=== PATIENT | male | born 1975 | race Caucasian/White ===

== ENCOUNTER 2017-04-24 16:03 | Emergency (ER) | payer MEDICAID, OTHER ==
[~2017-04-24] VITALS: Ht 177.8 cm; Wt 106.0 kg
[2017-04-24 16:07] VITALS: BP 130/88; RESP 16; TEMP 98; O2SAT 97
[2017-04-24] MEDS ORDERED: SODIUM CHLOR 0.9% 1000 ML INJ 1,000 ML IV ONE ×2 (16:17→16:47)
--- NOTE | 2017-04-24 16:21 | PD ---
HPI Chief Complaint: Flank/Kidney Pain Time Seen by Provider: 16:12 Travel History International Travel<30 days: No Contact w/Intl Traveler<30days: No Traveled to known affect area: No History of Present Illness HPI 42-year-old male with history of insulin-dependent diabetes, out of his long- acting insulin, here for evaluation of chest pain and bilateral flank pain. Patient reports history of kidney stones. He is having sharp bilateral flank pain and dysuria. Chest pain is left-sided, described as pressure and sharp, worse with coughing. Cough is nonproductive. No known history of cardiac disease. There is family history of cardiac disease in his mother who from heart disease. He denies smoking. No history of DVT or PE. He moved down here from [place] a few days ago. [facility] Social History Tobacco Use: No Allergies-Medications (Allergen,Severity, Reaction): Coded Allergies: No Known Allergies (Unverified , 04/24/17) Reported Meds & Prescriptions Reported Meds & Active Scripts Active Basaglar Kwikpen (Insulin Glargine) 100 Unit/Ml Pen 20 Units SQ DAILY Reported Novolin R Inj (Insulin Human Regular) 1,000 Unit/10 Ml Vial 0 SQ DIRECTED Sliding Scale As Directed. Lexapro (Escitalopram Oxalate) 10 Mg Tab 10 Mg PO DAILY Lisinopril 20 Mg Tab 20 Mg PO DAILY Review of Systems Except as stated in HPI: all other systems reviewed are Neg Physical Exam Narrative GENERAL: Well-developed, well-nourished, comfortable, no acute distress. SKIN: Focused skin assessment warm/dry. HEAD: Atraumatic. Normocephalic. EYES: Pupils equal and round. No scleral icterus. No injection or drainage. ENT: No nasal bleeding or discharge. Mucous membranes pink and dry. NECK: Trachea midline. No JVD. CARDIOVASCULAR: Tachycardic, regular. RESPIRATORY: No accessory muscle use. Clear to auscultation. Breath sounds equal bilaterally. GASTROINTESTINAL: Abdomen soft, non-tender, nondistended. MUSCULOSKELETAL: No obvious deformities. No clubbing. No cyanosis. No edema. NEUROLOGICAL: Awake and alert. No obvious cranial nerve deficits. Motor grossly within normal limits. Normal speech. PSYCHIATRIC: Appropriate mood and affect; insight and judgment normal. Data Data Last Documented VS Vital Signs Date Time Temp Pulse Resp B/P Pulse Ox O2 Delivery O2 Flow Rate FiO2 04/24/17 19:20 90 18 98 04/24/17 19:02 139/90 Room Air 04/24/17 16:07 98.0 Orders Electrocardiogram (04/24/17 16:17) Complete Blood Count With Diff (04/24/17 16:17) Comprehensive Metabolic Panel (04/24/17 16:17) Beta Hydroxybutyrate (Acetone) (04/24/17 16:17) Lactic Acid (04/24/17 16:17) Urinalysis - C+S If Indicated (04/24/17 16:17) Chest, Single Ap (04/24/17 16:17) Ecg Monitoring (04/24/17 16:17) Iv Access Insert/Monitor (04/24/17 16:17) Oximetry (04/24/17 16:17) NPO (04/24/17 16:17) Sodium Chlor 0.9% 1000 Ml Inj (Ns 1000 M (04/24/17 16:17) Sodium Chlor 0.9% 1000 Ml Inj (Ns 1000 M (04/24/17 16:47) Sodium Chloride 0.9% Flush (Ns Flush) (04/24/17 16:30) Lipase (04/24/17 16:17) Ckmb (Isoenzyme) Profile (04/24/17 16:17) Troponin I (04/24/17 16:17) Aspirin Chew (Aspirin Chew) (04/24/17 16:30) Ct Pulmonary Angiogram (04/24/17 16:17) Ct Abd/Pel W/O Iv Contrast (04/24/17 ) Ondansetron Inj (Zofran Inj) (04/24/17 16:30) Ketorolac Inj (Toradol Inj) (04/24/17 16:30) Iohexol 350 Inj (Omnipaque 350 Inj) (04/24/17 18:44) Labs Laboratory Tests Test 04/24/17 04/24/17 04/24/17 16:20 16:40 16:45 Urine Color YELLOW Urine Turbidity CLEAR Urine pH 6.0 Urine Specific [place] 1.025 Urine Protein NEG mg/dL Urine Glucose (UA) 250 mg/dL Urine Ketones TRACE mg/dL Urine Occult Blood NEG Urine Nitrite NEG Urine Bilirubin NEG Urine Leukocyte Esterase NEG Urine WBC 0-2 /hpf Urine Squamous Epithelial 0-5 /hpf Cells Microscopic Urinalysis Comment CULT NOT INDICATED Lactic Acid Level 1.2 mmol/L White Blood Count 12.2 TH/MM3 Red Blood Count 6.18 MIL/MM3 Hemoglobin 16.2 GM/DL Hematocrit 49.5 % Mean Corpuscular Volume 80.1 FL Mean Corpuscular Hemoglobin 26.2 PG Mean Corpuscular Hemoglobin 32.7 % Concent Red Cell Distribution Width 14.0 % Platelet Count 290 TH/MM3 Mean Platelet Volume 9.2 FL Neutrophils (%) (Auto) 70.0 % Lymphocytes (%) (Auto) 20.5 % Monocytes (%) (Auto) 6.6 % Eosinophils (%) (Auto) 2.5 % Basophils (%) (Auto) 0.4 % Neutrophils # (Auto) 8.6 TH/MM3 Lymphocytes # (Auto) 2.5 TH/MM3 Monocytes # (Auto) 0.8 TH/MM3 Eosinophils # (Auto) 0.3 TH/MM3 Basophils # (Auto) 0.0 TH/MM3 CBC Comment DIFF FINAL Differential Comment Sodium Level 140 MEQ/L Potassium Level 4.1 MEQ/L Chloride Level 104 MEQ/L Carbon Dioxide Level 27.3 MEQ/L Anion Gap 9 MEQ/L Blood Urea Nitrogen 16 MG/DL Creatinine 1.00 MG/DL Estimat Glomerular Filtration 82 ML/MIN Rate Random Glucose 235 MG/DL Calcium Level 8.8 MG/DL Total Bilirubin 0.6 MG/DL Aspartate Amino Transf 21 U/L (AST/SGOT) Alanine Aminotransferase 50 U/L (ALT/SGPT) Alkaline Phosphatase 99 U/L Total Creatine Kinase 83 U/L Troponin I LESS THAN 0.02 NG/ML Total Protein 7.7 GM/DL Albumin 3.8 GM/DL Lipase 107 U/L B-Hydroxybutyrate 0.10 MMOL/L [facility] Medical Decision Making Medical Screen Exam Complete: Yes Emergency Medical Condition: Yes Interpretation(s) EKG: Sinus tachycardia, rate 114, normal axis, normal intervals, no acute ischemic abnormality. Differential Diagnosis DKA, dehydration, UTI, nephrolithiasis, ureterolithiasis, pyelonephritis, ACS, pneumothorax, pericarditis, PE, pneumonia Narrative Course Vital signs show heart rate 120, blood pressure 130/80, pulse ox 97% on room air , oral temp of 98F. CBC is essentially unremarkable. CMP is remarkable for random glucose 235, otherwise unremarkable. Lactic acid is 1.2. Lipase is 107. Cardiac enzymes are negative. Beta hydroxybutyrate is 0.10. UA shows trace ketones, 250 glucose, no hematuria, not suggestive of UTI. CT pulmonary angiogram: CONCLUSION: No pulmonary embolus or other acute cardiopulmonary disease demonstrated. Evident on these contrast-enhanced images is fatty infiltration of the liver. CT abdomen pelvis: CONCLUSION: 1. Multiple small nonobstructing stones in both kidneys. No ureteral calculus or hydronephrosis/hydroureter on either side. 2. Nonspecific splenomegaly. 3. Sigmoid colon diverticulosis without perceptible acute inflammatory changes. 4. Fat-containing bilateral inguinal hernias. Patient was made aware of all findings. He is resting comfortably. He is feeling 100% better after receiving Toradol. He admits that his pain was worse with movements as well as when he coughs and now points to his left shoulder where his pain was. I do not believe his chest pain is cardiac in nature. Patient agrees with this. At this point I believe he is stable for discharge home with outpatient follow-up with a primary care physician this week. I will give him a prescription for his long-acting insulin Basaglar. He states he has plenty of NovoLog at home. He was informed on when to return to the emergency department. He verbalizes understanding and agreement with plan. Diagnosis Primary Impression: Hyperglycemia Additional Impressions: Atypical chest pain Musculoskeletal pain Referrals: [facility] 3 days Primary Care Physician 3 days Additional Instructions: Follow-up with a primary care physician this week. Return to the emergency department for worsening symptoms or any other concerns. Scripts Insulin Glargine (Basaglar Kwikpen)100 Unit/Ml Pen20 Units SQ DAILY #10 PEN Ref 0 Prov:Mann Youngblood MD 04/24/17 Disposition: 01 DISCHARGE HOME Condition: Stable Mann Youngblood MD Apr 24, 2017 16:21
[2017-04-24 16:30] VITALS: O2SAT 98
[2017-04-24] MEDS ORDERED: KETOROLAC TROMETHAMINE 30 MG/ML (IVP) VIAL IV PUSH ONE (16:30)
[2017-04-24] MEDS ORDERED: ONDANSETRON HCL 4 MG/2 ML VIAL IV PUSH ONE (16:30)
[2017-04-24] MEDS ORDERED: SODIUM CHLORIDE 0.9% FLUSH 10 ML FLUSH IVF PRN (16:30)
[2017-04-24] MEDS ORDERED: LEXA10TA PO (16:30)
[2017-04-24] MEDS ORDERED: NOVORP2 SQ (16:30)
[2017-04-24] MEDS ORDERED: ASPIRIN 81 MG CHEW TAB PO ONE (16:30)
[2017-04-24] MEDS ORDERED: LISI-515 PO (16:30)
--- NOTE | 2017-04-24 17:03 | RADHPO ---
EXAM DATE/TIME: 04/24/2017 16:39 [facility] COMPARISON: No previous studies available for comparison. INDICATIONS : Chest and abdominal pain. MEDICAL HISTORY : None. SURGICAL HISTORY : None. ENCOUNTER: Initial ACUITY: 1 day PAIN SCORE: 7/10 LOCATION: Bilateral chest FINDINGS: Slightly low lung volumes without significant focal pleural or parenchymal opacities. Cardiomediastin al contours are within normal limits. Bony thorax is intact. CONCLUSION: 1. No acute cardiopulmonary disease. Baljinder Torres MD on April 24, 2017 at 17:00 Board Certified Radiologist. This report was verified electronically.
[2017-04-24 17:10] LABS: CHLORIDE 104 MEQ/L (98-107); POTASSIUM 4.1 MEQ/L (3.5-5.1); SODIUM (NA) 140 MEQ/L (136-145)
[2017-04-24 17:14] LABS: ANION GAP 9 MEQ/L (5-15); BICARBONATE 27.3 MEQ/L (21.0-32.0)
[2017-04-24 17:15] LABS: BLOOD, URINE NEG (NEG); GLUCOSE,URINE 250 mg/dL (NEG); KETONE, URINE TRACE mg/dL (NEG); NITRITE,URINE NEG (NEG)
[2017-04-24 17:15] LABS: AUTOMATED NEUTROPHIL # 8.6 TH/MM3 (1.8-7.7); BASOPHIL % 0.4 % (0.0-2.0); BLOOD UREA NITROGEN 16 MG/DL (7-18); EOSINOPHIL # 0.3 TH/MM3 (0-0.4); EOSINOPHIL % 2.5 % (0.0-4.0); HEMATOCRIT 49.5 % (39.0-51.0); HEMO FLAGS DIFF FINAL; LYMPH % 20.5 % (9.0-44.0); LYMPHOCYTE # 2.5 TH/MM3 (1.0-4.8); MEAN CELL VOLUME 80.1 FL (80.0-100.0); MEAN CORPUSCULAR HEMOGLOBIN 26.2 PG (27.0-34.0); MEAN CORPUSCULAR HGB CONC 32.7 % (32.0-36.0); MONO % 6.6 % (0.0-8.0); PLATELET COUNT 290 TH/MM3 (150-450); RED BLOOD COUNT 6.18 MIL/MM3 (4.50-5.90); WHITE BLOOD COUNT 12.2 TH/MM3 (4.0-11.0)
[2017-04-24 17:17] LABS: ALT (GPT) 50 U/L (12-78); AST (GOT) 21 U/L (15-37); GLOMERULAR FILTRATION RATE 82 ML/MIN (>89)
[2017-04-24 17:19] LABS: TOTAL BILIRUBIN ADULT 0.6 MG/DL (0.2-1.0)
[2017-04-24 17:20] LABS: ALKALINE PHOSPHATASE 99 U/L (45-117)
[2017-04-24 17:26] LABS: URINE COLOR YELLOW (YELLW/STRAW)
[2017-04-24 17:27] LABS: COMMENT (UR) CULT NOT INDICATED; CULTURE IF INDICATED CULT NOT INDICATED; SQUAMOUS EPITHELIAL CELL URINE 0-5 /hpf (0-5); WBC, URINE 0-2 /hpf (0-5)
[2017-04-24 17:30] VITALS: BP_SYST 172; BP_DIAS 33; BP_DIAS 83; PULSE 74; RESP 18; O2SAT 99
[2017-04-24 17:31] LABS: CREATINE KINASE 83 U/L (39-308)
[2017-04-24] MEDS ORDERED: IOHEXOL 350 MG/ML 10 ML VIAL (for RAD DIAG) IV ONE (18:44)
--- NOTE | 2017-04-24 18:47 | RADHPO ---
EXAM DATE/TIME: 04/24/2017 17:54 [facility] COMPARISON: No previous studies available for comparison. INDICATIONS : Patient complains of right flank pain. ORAL CONTRAST: No oral contrast ingested. RADIATION DOSE: 26.90 CTDIvol (mGy) MEDICAL HISTORY : Renal calculi. Diabetes mellitus type 1. SURGICAL HISTORY : hernia repair ENCOUNTER: Initial ACUITY: 1 day PAIN SCALE: 8/10 LOCATION: Right flank TECHNIQUE: Volumetric scanning of the abdomen and pelvis was performed. Using automated exposure control and ad justment of the mA and/or kV according to patient size, radiation dose was kept as low as reasonably achievable to obtain optimal diagnostic quality images. FINDINGS: LOWER LUNGS: The visualized lower lungs are clear. LIVER: Homogeneous density without lesion. There is no dilation of the biliary tree. No calcified gallston es. SPLEEN: 14.7 cm craniocaudal PANCREAS: Within normal limits. KIDNEYS: There are approximately 8 sub-4 mm scattered stones of both kidneys. No ureteral calculus. No hydrone phrosis or hydroureter. ADRENAL GLANDS: Within normal limits. VASCULAR: There is no aortic aneurysm. BOWEL/MESENTERY: There is diverticulosis of the sigmoid colon. No acute inflammatory changes are demonstrated. ABDOMINAL WALL: Within normal limits. RETROPERITONEUM: There is no lymphadenopathy. BLADDER: No wall thickening or mass. REPRODUCTIVE: Within normal limits. INGUINAL: Bilateral fat-containing inguinal hernias are present. MUSCULOSKELETAL: Within normal limits for patient age. CONCLUSION: 1. Multiple small nonobstructing stones in both kidneys. No ureteral calculus or hydronephrosis/hydro ureter on either side. 2. Nonspecific splenomegaly. 3. Sigmoid colon diverticulosis without perceptible acute inflammatory changes. 4. Fat-containing bilateral inguinal hernias. Atul Mayo MD on April 24, 2017 at 18:42 Board Certified Radiologist. This report was verified electronically.
--- NOTE | 2017-04-24 18:48 | RADHPO ---
EXAM DATE/TIME: 04/24/2017 18:08 [facility] COMPARISON: No previous studies available for comparison. INDICATIONS : Patient complains of chest pain. IV CONTRAST: 75 cc Omnipaque 350 (iohexol) IV RADIATION DOSE: 20.27 CTDIvol (mGy) MEDICAL HISTORY : Renal calculi. Diabetes mellitus type 1. SURGICAL HISTORY : None. hernia repair ENCOUNTER: Initial ACUITY: 1 day PAIN SCALE: 8/10 LOCATION: chest TECHNIQUE: Volumetric scanning of the chest was performed using a pulmonary embolism protocol MIP images were re constructed. Using automated exposure control and adjustment of the mA and/or kV according to patien t size, radiation dose was kept as low as reasonably achievable to obtain optimal diagnostic quality images. FINDINGS: PULMONARY ARTERIES: No filling defects are seen in the pulmonary arteries through the segmental level. LUNGS: There is no consolidation or pneumothorax . No concerning pulmonary nodule is visualized. PLEURAE: There is no pleural thickening or pleural effusion. MEDIASTINUM: There is good visualization of the great vessels of the middle mediastinum. No evidence of mediastin al or hilar adenopathy/mass. MUSCULOSKELETAL: Within normal limits for patient age. MISCELLANEOUS: The visualized upper abdominal organs demonstrate no acute abnormality. CONCLUSION: No pulmonary embolus or other acute cardiopulmonary disease demonstrated. Evident on these contrast-e nhanced images is fatty infiltration of the liver. Atul Mayo MD on April 24, 2017 at 18:46 Board Certified Radiologist. This report was verified electronically.
[2017-04-24 19:02] VITALS: BP 139/90; PULSE 92; RESP 18; O2SAT 98
[2017-04-24] MEDS ORDERED: INSU1INJ18 SQ (19:09)
--- NOTE | 2017-04-25 14:58 | EKG ---
Date Performed: 04/24/2017 Time Performed: 16:32:17 PTAGE: 42 years EKG: SINUS TACHYCARDIA ABNORMAL RHYTHM ECG NO PREVIOUS TRACING DOCTOR: Naeem Lindo Interpretating Date/Time 04/25/2017 14:56:15
== END 2017-04-24 19:22 | disposition home or self-care (01) ==
LOC: PHED 16:03
DX: E11.65 Type 2 diabetes mellitus with hyperglycemia (principal); R07.89 Other chest pain; M79.1 Myalgia; R00.0 Tachycardia, unspecified; Z87.442 Personal history of urinary calculi; N20.0 Calculus of kidney
CPT/HCPCS: 71010; 71275; 74176; 80053; 81001; 82010; 82550; 83605; 83690; 84484; 85025; 93005; 96361; 96374; 96375; 99285; J1885; J2405; J7030; Q9967

== ENCOUNTER 2017-08-09 13:20 | Emergency (ER) | payer SELFPAY ==
[~2017-08-09] VITALS: Ht 177.8 cm; Wt 108.0 kg
[~2017-08-09 13:20] MED LIST: INSU1INJ18 SQ; LEXA10TA PO; LISI-515 PO; NOVORP2 SQ
[2017-08-09 13:26] VITALS: BP 144/73; PULSE 101; RESP 16; TEMP 97.8; O2SAT 97
[2017-08-09] MEDS ORDERED: NOVOLOGP2 SQ (13:39)
[2017-08-09] MEDS ORDERED: INSU1INJ18 SQ ×2 (13:39→15:01)
[2017-08-09] MEDS ORDERED: SODIUM CHLOR 0.9% 1000 ML INJ 1,000 ML IV SCH (13:49)
[2017-08-09] MEDS ORDERED: SODIUM CHLORIDE 0.9% FLUSH 10 ML FLUSH IV FLUSH PRN (14:00)
[2017-08-09] MEDS ORDERED: ONDANSETRON HCL 4 MG/2 ML VIAL IVP ONE (14:00)
[2017-08-09] MEDS ORDERED: MORPHINE SULFATE 4 MG/ML INJ IV PUSH ONE (14:00)
--- NOTE | 2017-08-09 14:11 | PD ---
HPI Chief Complaint: GI Complaint Time Seen by Provider: 13:43 Travel History International Travel<30 days: No Contact w/Intl Traveler<30days: No Traveled to known affect area: No History of Present Illness HPI The patient is a 42-year-old male who presents to the emergency department for nausea, vomiting, diarrhea, and abdominal pain that started last night. The patient was awakened from his sleep with abdominal pain and subsequent nausea and vomiting. He now complains of left lower quadrant abdominal pain. He also notes diarrhea which she describes as loose, watery, without any visible blood. The patient denies any fever, chills, or sweats. The patient does state the symptoms are moderate without any alleviating or exacerbating factors. The patient does have a history of insulin-dependent diabetes and takes long-acting and short-acting insulin. The patient recently moved [place] the local area and does not have a primary physician. The patient does have a history of previous hernia repair, denies any previous history of pancreatitis, biliary colic, gallstones, or diverticulitis. He denies any associated dysuria, frequency, or urgency. PFSH Past Medical History Diabetes: Yes Patient Takes Glucophage: No Hypertension: Yes Kidney Stones: Yes Tetanus Vaccination: < 5 Years Influenza Vaccination: No Past Surgical History Abdominal Surgery: Yes (hernia) Social History Alcohol Use: No Tobacco Use: No Substance Use: No Allergies-Medications (Allergen,Severity, Reaction): Coded Allergies: No Known Allergies (Unverified , 08/09/17) Reported Meds & Prescriptions Reported Meds & Active Scripts Active Reported Novolog Inj (Insulin Aspart) 1,000 Unit/10 Ml Vial 0 SQ DIRECTED Sliding Scale as directed. Basaglar Kwikpen (Insulin Glargine) 100 Unit/Ml Pen 1 Units SQ DIRECTED Lexapro (Escitalopram Oxalate) 10 Mg Tab 10 Mg PO DAILY Lisinopril 20 Mg Tab 20 Mg PO DAILY Review of Systems Except as stated in HPI: all other systems reviewed are Neg General / Constitutional: No: Fever Cardiovascular: No: Chest Pain or Discomfort Respiratory: No: Shortness of Breath Gastrointestinal: Positive: Nausea, Vomiting, Diarrhea, Abdominal Pain Genitourinary: No: Dysuria Musculoskeletal: No: Myalgias, Arthralgias, Weakness Physical Exam Narrative GENERAL: Awake, alert, pleasant 42-year-old male who appears his stated age and is in no acute respiratory distress. SKIN: Focused skin assessment warm/dry. HEAD: Atraumatic. Normocephalic. EYES: Pupils equal and round. No scleral icterus. No injection or drainage. ENT: No nasal bleeding or discharge. Slightly dry mucous members. NECK: Trachea midline. No JVD. CARDIOVASCULAR: Regular, tachycardic with a heart rate 105. RESPIRATORY: No accessory muscle use. Clear to auscultation. Breath sounds equal bilaterally. GASTROINTESTINAL: Abdomen soft, tender palpation epigastrium and left lower quadrant. No guarding or rigidity. Negative Miranda's. Negative McBurney's. MUSCULOSKELETAL: No obvious deformities. No clubbing. No cyanosis. No edema. NEUROLOGICAL: Awake and alert. No obvious cranial nerve deficits. Motor grossly within normal limits. Normal speech. PSYCHIATRIC: Appropriate mood and affect; insight and judgment normal. Data Data Last Documented VS Vital Signs Date Time Temp Pulse Resp B/P (MAP) Pulse Ox O2 Delivery O2 Flow Rate FiO2 08/09/17 14:20 14 08/09/17 14:15 96 139/76 (97) 96 Room Air 08/09/17 13:26 97.8 Orders Orders Complete Blood Count With Diff (08/09/17 13:49) Comprehensive Metabolic Panel (08/09/17 13:49) Lipase (08/09/17 13:49) Urinalysis - C+S If Indicated (08/09/17 13:49) Ct Abd/Pel W/O Iv Contrast (08/09/17 13:49) Iv Access Insert/Monitor (08/09/17 13:49) Ecg Monitoring (08/09/17 13:49) Oximetry (08/09/17 13:49) Morphine Inj (Morphine Inj) (08/09/17 14:00) Ondansetron Inj (Zofran Inj) (08/09/17 14:00) Sodium Chlor 0.9% 1000 Ml Inj (Ns 1000 M (08/09/17 13:49) Sodium Chloride 0.9% Flush (Ns Flush) (08/09/17 14:00) Resp Blood Gas Venous (08/09/17 ) Blood Gas Venous (Vbg) (08/09/17 14:02) Sodium Chlor 0.9% 1000 Ml Inj (Ns 1000 M (08/09/17 14:45) Insulin Aspart Inj (Novolog Inj) (08/09/17 14:45) Labs Laboratory Tests Test 08/09/17 14:02 08/09/17 14:05 Blood Gas Puncture Site IV Blood Gas Patient Temperature 98.6 Venous Blood pH 7.43 Venous Blood Partial Pressure CO2 40 mmHg Venous Blood Partial Pressure O2 70 mmHg Venous Blood HCO3 26 mmol/L Venous Blood Oxygen Saturation 92 % Venous Blood Oxygen Content 20.3 Vol % Venous Blood Base Excess 1.9 mmol/L Oxygen Delivery Device ROOM AIR Blood Gas Inspired Oxygen 21 % White Blood Count 12.1 TH/MM3 Red Blood Count 5.57 MIL/MM3 Hemoglobin 15.0 GM/DL Hematocrit 44.1 % Mean Corpuscular Volume 79.2 FL Mean Corpuscular Hemoglobin 27.0 PG Mean Corpuscular Hemoglobin Concent 34.0 % Red Cell Distribution Width 13.0 % Platelet Count 241 TH/MM3 Mean Platelet Volume 8.6 FL Neutrophils (%) (Auto) 80.3 % Lymphocytes (%) (Auto) 11.4 % Monocytes (%) (Auto) 4.9 % Eosinophils (%) (Auto) 1.8 % Basophils (%) (Auto) 1.6 % Neutrophils # (Auto) 9.7 TH/MM3 Lymphocytes # (Auto) 1.4 TH/MM3 Monocytes # (Auto) 0.6 TH/MM3 Eosinophils # (Auto) 0.2 TH/MM3 Basophils # (Auto) 0.2 TH/MM3 CBC Comment DIFF FINAL Differential Comment Blood Urea Nitrogen 11 MG/DL Creatinine 0.88 MG/DL Random Glucose 352 MG/DL Total Protein 7.0 GM/DL Albumin 3.3 GM/DL Calcium Level 8.6 MG/DL Alkaline Phosphatase 119 U/L Aspartate Amino Transf (AST/SGOT) 15 U/L Alanine Aminotransferase (ALT/SGPT) 35 U/L Total Bilirubin 0.4 MG/DL Sodium Level 134 MEQ/L Potassium Level 3.9 MEQ/L Chloride Level 101 MEQ/L Carbon Dioxide Level 24.3 MEQ/L Anion Gap 9 MEQ/L Estimat Glomerular Filtration Rate 95 ML/MIN Lipase 235 U/L [facility] Medical Decision Making Medical Screen Exam Complete: Yes Emergency Medical Condition: Yes Medical Record Reviewed: Yes Interpretation(s) Laboratory Tests Test 08/09/17 14:02 08/09/17 14:05 Blood Gas Puncture Site IV Blood Gas Patient Temperature 98.6 Venous Blood pH 7.43 Venous Blood Partial Pressure CO2 40 mmHg Venous Blood Partial Pressure O2 70 mmHg Venous Blood HCO3 26 mmol/L Venous Blood Oxygen Saturation 92 % Venous Blood Oxygen Content 20.3 Vol % Venous Blood Base Excess 1.9 mmol/L Oxygen Delivery Device ROOM AIR Blood Gas Inspired Oxygen 21 % White Blood Count 12.1 TH/MM3 Red Blood Count 5.57 MIL/MM3 Hemoglobin 15.0 GM/DL Hematocrit 44.1 % Mean Corpuscular Volume 79.2 FL Mean Corpuscular Hemoglobin 27.0 PG Mean Corpuscular Hemoglobin Concent 34.0 % Red Cell Distribution Width 13.0 % Platelet Count 241 TH/MM3 Mean Platelet Volume 8.6 FL Neutrophils (%) (Auto) 80.3 % Lymphocytes (%) (Auto) 11.4 % Monocytes (%) (Auto) 4.9 % Eosinophils (%) (Auto) 1.8 % Basophils (%) (Auto) 1.6 % Neutrophils # (Auto) 9.7 TH/MM3 Lymphocytes # (Auto) 1.4 TH/MM3 Monocytes # (Auto) 0.6 TH/MM3 Eosinophils # (Auto) 0.2 TH/MM3 Basophils # (Auto) 0.2 TH/MM3 CBC Comment DIFF FINAL Differential Comment Blood Urea Nitrogen 11 MG/DL Creatinine 0.88 MG/DL Random Glucose 352 MG/DL Total Protein 7.0 GM/DL Albumin 3.3 GM/DL Calcium Level 8.6 MG/DL Alkaline Phosphatase 119 U/L Aspartate Amino Transf (AST/SGOT) 15 U/L Alanine Aminotransferase (ALT/SGPT) 35 U/L Total Bilirubin 0.4 MG/DL Sodium Level 134 MEQ/L Potassium Level 3.9 MEQ/L Chloride Level 101 MEQ/L Carbon Dioxide Level 24.3 MEQ/L Anion Gap 9 MEQ/L Estimat Glomerular Filtration Rate 95 ML/MIN Lipase 235 U/L CT the abdomen and pelvis reveals bilateral nonobstructing renal stones. Mildly prominent spleen unchanged from 04/24/2017. Differential Diagnosis Differential diagnosis includes diverticulitis, gastritis, pancreatitis, peptic ulcer disease, partial small bowel obstruction, DKA, electrolyte abnormality, dehydration. Narrative Course IV was established, labs are drawn and sent, and the patient was placed on cardiac telemetry monitoring and continuous pulse oximetry monitoring. Bedside Accu-Chek was obtained, was 309. VBG was sent to lab. CT of the abdomen and pelvis was ordered to evaluate for possible diverticulitis. The patient was administered morphine, Zofran, and IV fluids. VBG reveals normal pH and normal PCO2 and normal bicarbonate, no evidence of DKA. Anion gap is normal. Glucose is elevated at 352 on BMP, therefore, patient was administered a second liter of IV fluids and 8 units of insulin aspart subcutaneously. CT of the abdomen and pelvis is unremarkable, no evidence of acute diverticulitis. No evidence of DKA. Most likely this is related to viral gastroenteritis or food poisoning. The patient does need refills for his medications, therefore, I will write for refills for his medications until he is able to get into a clinic for further evaluation and continuing treatment. The patient will be discharged home with Zofran, is advised to have a clear liquid diet and advance as tolerated. Follow-up with a primary physician. Diagnosis Primary Impression: Gastroenteritis Additional Impression: Hyperglycemia Referrals: [facility] as needed Patient Instructions: General Instructions Additional Instructions: Medications as directed. Follow up at the [facility]. Return if symptoms worsen or progress. Clear liquid diet and advance as tolerated. Please provide the patient a copy of his CT results and lab results at discharge. Med/Other Pt SpecificInfo: Prescription(s) given Scripts Ondansetron Odt (Zofran Odt) 4 Mg Tab 4 MG SL Q6HR Y for Nausea/Vomiting, #10 TAB 0 Refills Prov: Minor Slater MD 08/09/17 Insulin Glargine (Basaglar Kwikpen) 100 Unit/Ml Pen 25 UNITS SQ DIRECTED for Blood Sugar Management, #5 PEN 2 Refills Prov: Minor Slater MD 08/09/17 Escitalopram (Lexapro) 10 Mg Tab 10 MG PO DAILY, #30 TAB 2 Refills Prov: Minor Slater MD 08/09/17 Lisinopril (Lisinopril) 20 Mg Tab 20 MG PO DAILY, #30 TAB 2 Refills Prov: Minor Slater MD 08/09/17 Disposition: 01 DISCHARGE HOME Condition: Stable Minor Slater MD Aug 09, 2017 14:11
[2017-08-09 14:14] LABS: BLOOD GAS VENOUS BASE EXCESS 1.9 mmol/L (-2-2); BLOOD GAS VENOUS HCO3 26 mmol/L (22-26); BLOOD GAS VENOUS O2 CONTENT 20.3 Vol % (9.0-17.0); BLOOD GAS VENOUS O2 HGB SAT 92 % (70-76); BLOOD GAS VENOUS PCO2 40 mmHg (44-48); BLOOD GAS VENOUS PO2 70 mmHg (35-40); BLOOD GAS VENOUS pH 7.43 (7.360-7.400); CRITICAL VALUE NO; DRAW SITE IV; FIO2 21 %; OXYGEN DEVICE ROOM AIR; STAT YES; TEMP CORR TO 98.6
[2017-08-09 14:15] VITALS: BP 139/76; PULSE 96; RESP 16; O2SAT 96
[2017-08-09 14:16] LABS: AUTOMATED NEUTROPHIL # 9.7 TH/MM3 (1.8-7.7); BASOPHIL # 0.2 TH/MM3 (0-0.2); BASOPHIL % 1.6 % (0.0-2.0); EOSINOPHIL # 0.2 TH/MM3 (0-0.4); EOSINOPHIL % 1.8 % (0.0-4.0); HEMATOCRIT 44.1 % (39.0-51.0); LYMPH % 11.4 % (9.0-44.0); LYMPHOCYTE # 1.4 TH/MM3 (1.0-4.8); MEAN CELL VOLUME 79.2 FL (80.0-100.0); MONO % 4.9 % (0.0-8.0); NEUT % 80.3 % (16.0-70.0); PLATELET COUNT 241 TH/MM3 (150-450); RED BLOOD COUNT 5.57 MIL/MM3 (4.50-5.90); WHITE BLOOD COUNT 12.1 TH/MM3 (4.0-11.0)
[2017-08-09 14:19] LABS: HEMO FLAGS DIFF FINAL
[2017-08-09 14:24] LABS: CHLORIDE 101 MEQ/L (98-107); POTASSIUM 3.9 MEQ/L (3.5-5.1); SODIUM (NA) 134 MEQ/L (136-145)
[2017-08-09 14:28] LABS: ANION GAP 9 MEQ/L (5-15); BICARBONATE 24.3 MEQ/L (21.0-32.0)
[2017-08-09 14:29] LABS: BLOOD UREA NITROGEN 11 MG/DL (7-18)
[2017-08-09 14:31] LABS: ALT (GPT) 35 U/L (12-78); AST (GOT) 15 U/L (15-37); GLOMERULAR FILTRATION RATE 95 ML/MIN (>89)
[2017-08-09 14:33] LABS: TOTAL BILIRUBIN ADULT 0.4 MG/DL (0.2-1.0)
[2017-08-09 14:34] LABS: ALKALINE PHOSPHATASE 119 U/L (45-117)
[2017-08-09] MEDS ORDERED: SODIUM CHLOR 0.9% 1000 ML INJ 1,000 ML IV ONE (14:45)
[2017-08-09] MEDS ORDERED: INSULIN ASPART 1,000 UNITS/10 ML VIAL SQ ONE (14:45)
--- NOTE | 2017-08-09 14:56 | RADRPT ---
EXAM DATE/TIME: 08/09/2017 14:25 [facility] COMPARISON: CT ABDOMEN & PELVIS W/O CONTRAST, April 24, 2017, 17:54. INDICATIONS : Left lower quadrant pain. Nausea, vomiting and diarrhea. ORAL CONTRAST: No oral contrast ingested. RADIATION DOSE: 21.33 CTDIvol (mGy) MEDICAL HISTORY : Diabetes mellitus type 2. Hypertension. Renal calculi. SURGICAL HISTORY : Inguinal hernia repair. ENCOUNTER: Initial ACUITY: 1 day PAIN SCALE: 6/10 LOCATION: Left lower quadrant TECHNIQUE: Volumetric scanning of the abdomen and pelvis was performed. Using automated exposure control and ad justment of the mA and/or kV according to patient size, radiation dose was kept as low as reasonably achievable to obtain optimal diagnostic quality images. DICOM format image data is available electro nically for review and comparison. FINDINGS: Lung bases are clear. The liver is free of focal defects. Spleen is mildly prominent. The pancreas , adrenals are unremarkable. LOWER LUNGS: Lung bases are clear. LIVER: The liver is free of focal defects. SPLEEN: Spleen is mildly prominent. PANCREAS: Unremarkable. RIGHT KIDNEY: Three small 1 mm stones are seen in the right kidney. There are no stones along the left or rather u reter. LEFT KIDNEY: Scattered small stones are seen in the left kidney. There are no calcifications along the expected c ourse of the left ureter. ADRENAL GLANDS: Unremarkable. BOWEL/MESENTERY: There is no retroperitoneal adenopathy. Pelvic contents are unremarkable. CONCLUSION: Bilateral non-obstructing renal stones. Mildly prominent spleen unchanged from 04/24/17. Nate Guy MD FACR on August 09, 2017 at 14:44 Board Certified Radiologist. This report was verified electronically.
[2017-08-09] MEDS ORDERED: LISI-515 PO (15:01)
[2017-08-09] MEDS ORDERED: LEXA10TA PO (15:01)
[2017-08-09] MEDS ORDERED: ZOFR4TAB3 SL (15:01)
[2017-08-09 16:50] VITALS: BP 139/61; PULSE 87; RESP 16; O2SAT 99
== END 2017-08-09 16:54 | disposition home or self-care (01) ==
LOC: PHED 13:20
DX: K52.9 Noninfective gastroenteritis and colitis, unspecified (principal); E11.65 Type 2 diabetes mellitus with hyperglycemia; Z79.4 Long term (current) use of insulin; I10 Essential (primary) hypertension; Z87.442 Personal history of urinary calculi
CPT/HCPCS: 74176; 80053; 82805; 83690; 85025; 96361; 96372; 96374; 96375; 99285; J1815; J2270; J2405; J7030

== ENCOUNTER 2017-10-07 19:50 | Emergency (ER) | payer SELFPAY ==
[~2017-10-07] VITALS: Ht 177.8 cm; Wt 108.9 kg
[~2017-10-07 19:50] MED LIST changes: +NOVOLOGP2 SQ; -NOVORP2 SQ; +ZOFR4TAB3 SL
[2017-10-07 19:57] VITALS: BP 135/85; PULSE 94; RESP 20; TEMP 108.9; TEMP 98.1
[2017-10-07] MEDS ORDERED: SODIUM CHLOR 0.9% 1000 ML INJ 1,000 ML IV ONE ×2 (20:10→20:40)
[2017-10-07] MEDS ORDERED: SODIUM CHLORIDE 0.9% FLUSH 10 ML FLUSH IVF PRN (20:15)
--- NOTE | 2017-10-07 20:15 | PD ---
HPI Chief Complaint: Diabetic Time Seen by Provider: 20:10 Travel History International Travel<30 days: No Contact w/Intl Traveler<30days: No Traveled to known affect area: No History of Present Illness HPI The patient is a 42-year-old male who presents to the emergency department for elevated blood glucose readings at home. The patient states she has a history of diabetes, was unable to tolerate metformin secondary to persistent nausea. The patient was then placed on glargine insulin 25 units at night as well as NovoLog with a sliding scale. The patient states he moved from [place] to the local area 6 months ago and has been unable to see a physician secondary to his [place] Medicaid insurance. The patient states she has not been using his long-acting insulin, states he ran out of his medication, but has been using the NovoLog sliding scale pain. The patient states he last used NovoLog several hours prior to arrival, cannot recall the exact number of units. The patient states his blood sugars been running in the 400s. Patient does complain of cough and cold symptoms such as runny nose, sore throat, dry nonproductive cough, and myalgias over the last 4 days. The patient states several of his family members had similar symptoms, he thinks this is exacerbating his blood glucose readings. He denies any current fever, chest pain, shortness breath, nausea, vomiting, diarrhea, or abdominal pain. [facility] Past Medical History Diabetes: Yes Hypertension: Yes Kidney Stones: Yes Past Surgical History Abdominal Surgery: Yes (Inguinal hernia) Social History Alcohol Use: No Tobacco Use: No Substance Use: No Allergies-Medications (Allergen,Severity, Reaction): Coded Allergies: No Known Allergies (Unverified , 08/09/17) Reported Meds & Prescriptions Reported Meds & Active Scripts Active Basaglar Kwikpen (Insulin Glargine) 100 Unit/Ml Pen 25 Units SQ DIRECTED Novolog Inj (Insulin Aspart) 1,000 Unit/10 Ml Vial 0 SQ DIRECTED Sliding Scale as directed. Zofran Odt (Ondansetron Odt) 4 Mg Tab 4 Mg SL Q6HR PRN Lexapro (Escitalopram Oxalate) 10 Mg Tab 10 Mg PO DAILY Lisinopril 20 Mg Tab 20 Mg PO DAILY Review of Systems Except as stated in HPI: all other systems reviewed are Neg General / Constitutional: No: Fever HENT: Positive: Sore Throat, Congestion Cardiovascular: No: Chest Pain or Discomfort Respiratory: No: Shortness of Breath Gastrointestinal: No: Nausea, Vomiting, Abdominal Pain Genitourinary: No: Dysuria Musculoskeletal: Positive: Myalgias, Weakness Physical Exam Narrative GENERAL: Awake, alert, pleasant 42-year-old male who appears his stated age and is in no acute respiratory distress. SKIN: Focused skin assessment warm/dry. HEAD: Atraumatic. Normocephalic. EYES: Pupils equal and round. No scleral icterus. No injection or drainage. ENT: No nasal bleeding or discharge. Slightly dry mucous membranes. Oropharynx reveals cobblestoning but no erythema or exudate. NECK: Trachea midline. No JVD. CARDIOVASCULAR: Regular rate and rhythm. No murmur appreciated. Heart rate in the 90s. RESPIRATORY: No accessory muscle use. Clear to auscultation. Breath sounds equal bilaterally. GASTROINTESTINAL: Abdomen soft, non-tender, nondistended. No rebound tenderness. MUSCULOSKELETAL: No obvious deformities. No clubbing. No cyanosis. No edema. NEUROLOGICAL: Awake and alert. No obvious cranial nerve deficits. Motor grossly within normal limits. Normal speech. PSYCHIATRIC: Appropriate mood and affect; insight and judgment normal. Data Data Last Documented VS Vital Signs Date Time Temp Pulse Resp B/P (MAP) Pulse Ox O2 Delivery O2 Flow Rate FiO2 10/07/17 20:21 98 Room Air 10/07/17 19:57 98.1 94 20 135/85 (102) Orders Orders Complete Blood Count With Diff (10/07/17 20:10) Comprehensive Metabolic Panel (10/07/17 20:10) Magnesium (Mg) (10/07/17 20:10) Beta Hydroxybutyrate (Acetone) (10/07/17 20:10) Urinalysis - C+S If Indicated (10/07/17 20:10) Blood Gas Venous (Vbg) (10/07/17 20:10) Blood Glucose (10/07/17 20:10) Blood Glucose (10/07/17 21:10) Ecg Monitoring (10/07/17 20:10) Iv Access Insert/Monitor (10/07/17 20:10) Oximetry (10/07/17 20:10) NPO (10/07/17 20:10) Sodium Chlor 0.9% 1000 Ml Inj (Ns 1000 M (10/07/17 20:10) Sodium Chlor 0.9% 1000 Ml Inj (Ns 1000 M (10/07/17 20:40) Sodium Chloride 0.9% Flush (Ns Flush) (10/07/17 20:15) Labs Laboratory Tests Test 10/07/17 20:18 10/07/17 20:23 Blood Gas Puncture Site RT ARM IV Blood Gas Patient Temperature 37.0 Venous Blood pH 7.40 Venous Blood Partial Pressure CO2 40 mmHg Venous Blood Partial Pressure O2 55 mmHg Venous Blood HCO3 24 mmol/L Venous Blood Oxygen Saturation 87 % Venous Blood Oxygen Content 18.0 Vol % Venous Blood Base Excess 0.1 mmol/L Oxygen Delivery Device ROOM AIR Blood Gas Inspired Oxygen 21 % White Blood Count 8.1 TH/MM3 Red Blood Count 5.55 MIL/MM3 Hemoglobin 14.5 GM/DL Hematocrit 44.5 % Mean Corpuscular Volume 80.3 FL Mean Corpuscular Hemoglobin 26.1 PG Mean Corpuscular Hemoglobin Concent 32.5 % Red Cell Distribution Width 13.2 % Platelet Count 231 TH/MM3 Mean Platelet Volume 9.0 FL Neutrophils (%) (Auto) 66.9 % Lymphocytes (%) (Auto) 23.4 % Monocytes (%) (Auto) 5.9 % Eosinophils (%) (Auto) 3.4 % Basophils (%) (Auto) 0.4 % Neutrophils # (Auto) 5.4 TH/MM3 Lymphocytes # (Auto) 1.9 TH/MM3 Monocytes # (Auto) 0.5 TH/MM3 Eosinophils # (Auto) 0.3 TH/MM3 Basophils # (Auto) 0.0 TH/MM3 CBC Comment DIFF FINAL Differential Comment Urine Color YELLOW Urine Turbidity CLEAR Urine pH 5.5 Urine Specific Montara 1.031 Urine Protein NEG mg/dL Urine Glucose (UA) 1000 OR GREATER mg/dL Urine Ketones NEG mg/dL Urine Occult Blood NEG Urine Nitrite NEG Urine Bilirubin NEG Urine Leukocyte Esterase NEG Urine Squamous Epithelial Cells 0-5 /hpf Microscopic Urinalysis Comment CULT NOT INDICATED Blood Urea Nitrogen 9 MG/DL Creatinine 0.93 MG/DL Random Glucose 397 MG/DL Total Protein 7.3 GM/DL Albumin 3.5 GM/DL Calcium Level 8.3 MG/DL Magnesium Level 2.1 MG/DL Alkaline Phosphatase 115 U/L Aspartate Amino Transf (AST/SGOT) 16 U/L Alanine Aminotransferase (ALT/SGPT) 42 U/L Total Bilirubin 0.3 MG/DL Sodium Level 135 MEQ/L Potassium Level 3.9 MEQ/L Chloride Level 101 MEQ/L Carbon Dioxide Level 24.2 MEQ/L Anion Gap 10 MEQ/L Estimat Glomerular Filtration Rate 89 ML/MIN B-Hydroxybutyrate 0.08 MMOL/L MDM Medical Decision Making Medical Screen Exam Complete: Yes Emergency Medical Condition: Yes Medical Record Reviewed: Yes Interpretation(s) Laboratory Tests Test 10/07/17 20:18 10/07/17 20:23 Blood Gas Puncture Site RT ARM IV Blood Gas Patient Temperature 37.0 Venous Blood pH 7.40 Venous Blood Partial Pressure CO2 40 mmHg Venous Blood Partial Pressure O2 55 mmHg Venous Blood HCO3 24 mmol/L Venous Blood Oxygen Saturation 87 % Venous Blood Oxygen Content 18.0 Vol % Venous Blood Base Excess 0.1 mmol/L Oxygen Delivery Device ROOM AIR Blood Gas Inspired Oxygen 21 % White Blood Count 8.1 TH/MM3 Red Blood Count 5.55 MIL/MM3 Hemoglobin 14.5 GM/DL Hematocrit 44.5 % Mean Corpuscular Volume 80.3 FL Mean Corpuscular Hemoglobin 26.1 PG Mean Corpuscular Hemoglobin Concent 32.5 % Red Cell Distribution Width 13.2 % Platelet Count 231 TH/MM3 Mean Platelet Volume 9.0 FL Neutrophils (%) (Auto) 66.9 % Lymphocytes (%) (Auto) 23.4 % Monocytes (%) (Auto) 5.9 % Eosinophils (%) (Auto) 3.4 % Basophils (%) (Auto) 0.4 % Neutrophils # (Auto) 5.4 TH/MM3 Lymphocytes # (Auto) 1.9 TH/MM3 Monocytes # (Auto) 0.5 TH/MM3 Eosinophils # (Auto) 0.3 TH/MM3 Basophils # (Auto) 0.0 TH/MM3 CBC Comment DIFF FINAL Differential Comment Urine Color YELLOW Urine Turbidity CLEAR Urine pH 5.5 Urine Specific Montara 1.031 Urine Protein NEG mg/dL Urine Glucose (UA) 1000 OR GREATER mg/dL Urine Ketones NEG mg/dL Urine Occult Blood NEG Urine Nitrite NEG Urine Bilirubin NEG Urine Leukocyte Esterase NEG Urine Squamous Epithelial Cells 0-5 /hpf Microscopic Urinalysis Comment CULT NOT INDICATED Blood Urea Nitrogen 9 MG/DL Creatinine 0.93 MG/DL Random Glucose 397 MG/DL Total Protein 7.3 GM/DL Albumin 3.5 GM/DL Calcium Level 8.3 MG/DL Magnesium Level 2.1 MG/DL Alkaline Phosphatase 115 U/L Aspartate Amino Transf (AST/SGOT) 16 U/L Alanine Aminotransferase (ALT/SGPT) 42 U/L Total Bilirubin 0.3 MG/DL Sodium Level 135 MEQ/L Potassium Level 3.9 MEQ/L Chloride Level 101 MEQ/L Carbon Dioxide Level 24.2 MEQ/L Anion Gap 10 MEQ/L Estimat Glomerular Filtration Rate 89 ML/MIN B-Hydroxybutyrate 0.08 MMOL/L Differential Diagnosis Differential diagnosis includes hyperglycemia, noncompliance, DKA, electrolyte abnormality, dehydration, acute kidney injury, viral syndrome, influenza. Narrative Course IV was established, labs are drawn and sent, and the patient was placed on cardiac telemetry monitoring and continuous pulse oximetry monitoring. The patient was administered 2 L of IV fluids and Accu-Chek was ordered every hour 2. VBG was sent to lab. The patient's pH is 7.4, bicarbonate is 24, I doubt DKA. Anion gap is normal. The patient has hyperglycemia but no evidence of diabetic ketoacidosis. I will refill the patient's long-term insulin, he is advised to monitor blood sugars closely and a follow-up with your primary physician and/or refueling rampman. The patient's blood sugar was down to 255, the patient is stable for outpatient follow-up. Diagnosis Primary Impression: Hyperglycemia Patient Instructions: General Instructions Additional Instructions: Medications as directed. Monitor blood sugars closely. Follow-up with a primary physician. You may benefit from following up with an refueling rampman. Return if symptoms worsen or progress. Med/Other Pt SpecificInfo: Prescription(s) given Scripts Insulin Glargine (Basaglar Kwikpen) 100 Unit/Ml Pen 25 UNITS SQ DIRECTED for Blood Sugar Management, #5 PEN 2 Refills Prov: Minor Slater MD 10/07/17 Insulin Aspart Inj (Novolog Inj) 1,000 Unit/10 Ml Vial 0 SQ DIRECTED for Blood Sugar Management, #10 ML 2 Refills Sliding Scale as directed. Prov: Minor Slater MD 10/07/17 Disposition: 01 DISCHARGE HOME Condition: Stable Minor Slater MD Oct 07, 2017 20:15
[2017-10-07 20:30] LABS: BLOOD GAS VENOUS BASE EXCESS 0.1 mmol/L (-2-2); BLOOD GAS VENOUS HCO3 24 mmol/L (22-26); BLOOD GAS VENOUS O2 HGB SAT 87 % (70-76); BLOOD GAS VENOUS PCO2 40 mmHg (44-48); BLOOD GAS VENOUS PO2 55 mmHg (35-40)
[2017-10-07 20:31] LABS: CRITICAL VALUE NO; FIO2 21 %; OXYGEN DEVICE ROOM AIR; STAT YES
[2017-10-07 20:40] LABS: BLOOD, URINE NEG (NEG); GLUCOSE,URINE 1000 OR GREATER mg/dL (NEG); KETONE, URINE NEG (NEG); NITRITE,URINE NEG (NEG); PH, URINE 5.5 (5.0-8.5)
[2017-10-07 20:43] LABS: AUTOMATED NEUTROPHIL # 5.4 TH/MM3 (1.8-7.7); BASOPHIL % 0.4 % (0.0-2.0); EOSINOPHIL # 0.3 TH/MM3 (0-0.4); EOSINOPHIL % 3.4 % (0.0-4.0); HEMATOCRIT 44.5 % (39.0-51.0); HEMO FLAGS DIFF FINAL; LYMPH % 23.4 % (9.0-44.0); LYMPHOCYTE # 1.9 TH/MM3 (1.0-4.8); MEAN CELL VOLUME 80.3 FL (80.0-100.0); MEAN CORPUSCULAR HEMOGLOBIN 26.1 PG (27.0-34.0); MEAN CORPUSCULAR HGB CONC 32.5 % (32.0-36.0); MONO % 5.9 % (0.0-8.0); NEUT % 66.9 % (16.0-70.0); PLATELET COUNT 231 TH/MM3 (150-450); RED BLOOD COUNT 5.55 MIL/MM3 (4.50-5.90); RED CELL DISTRIBUTION WIDTH 13.2 % (11.6-17.2); WHITE BLOOD COUNT 8.1 TH/MM3 (4.0-11.0)
[2017-10-07 20:46] LABS: COMMENT (UR) CULT NOT INDICATED; CULTURE IF INDICATED CULT NOT INDICATED; SQUAMOUS EPITHELIAL CELL URINE 0-5 /hpf (0-5); URINE COLOR YELLOW (YELLW/STRAW)
[2017-10-07 20:55] LABS: CHLORIDE 101 MEQ/L (98-107); POTASSIUM 3.9 MEQ/L (3.5-5.1); SODIUM (NA) 135 MEQ/L (136-145)
[2017-10-07 20:59] LABS: ANION GAP 10 MEQ/L (5-15); BICARBONATE 24.2 MEQ/L (21.0-32.0); BLOOD UREA NITROGEN 9 MG/DL (7-18); MAGNESIUM 2.1 MG/DL (1.5-2.5)
[2017-10-07 21:02] LABS: ALT (GPT) 42 U/L (12-78); AST (GOT) 16 U/L (15-37); GLOMERULAR FILTRATION RATE 89 ML/MIN (>89)
[2017-10-07 21:04] LABS: TOTAL BILIRUBIN ADULT 0.3 MG/DL (0.2-1.0)
[2017-10-07 21:05] LABS: ALKALINE PHOSPHATASE 115 U/L (45-117)
[2017-10-07 21:13] LABS: BETA-HYDROXYBUTYRATE 0.08 MMOL/L (0.00-0.39)
[2017-10-07] MEDS ORDERED: NOVOLOGP2 SQ (21:24)
[2017-10-07] MEDS ORDERED: INSU1INJ18 SQ (21:24)
[2017-10-07 21:47] VITALS: BP 140/72
== END 2017-10-07 21:50 | disposition home or self-care (01) ==
LOC: PHED 19:50
DX: E11.65 Type 2 diabetes mellitus with hyperglycemia (principal); R05 Cough; R07.0 Pain in throat; M79.1 Myalgia; I10 Essential (primary) hypertension; Z79.4 Long term (current) use of insulin; Z87.442 Personal history of urinary calculi
CPT/HCPCS: 80053; 81001; 82010; 82805; 83735; 85025; 96360; 99284; J7030

== ENCOUNTER 2017-11-08 05:18 | Emergency (ER) | payer MEDICAID ==
[~2017-11-08] VITALS: Ht 177.8 cm; Wt 108.9 kg
[2017-11-08 05:22] VITALS: BP 143/94; PULSE 92; TEMP 97.5; O2SAT 97
[2017-11-08 05:32] VITALS: BP 143/94; PULSE 92; RESP 20; TEMP 97.5; O2SAT 96
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
== END 2017-11-08 06:11 | disposition home or self-care (01) ==
LOC: PHED 05:18
DX: H16.133 Photokeratitis, bilateral (principal); W89.8XXA Exposure to other man-made visible and ultraviolet light, initial encounter; E11.9 Type 2 diabetes mellitus without complications; I10 Essential (primary) hypertension
CPT/HCPCS: 99283

== ENCOUNTER 2017-12-19 20:00 | Emergency (ER) | payer MEDICAID ==
[~2017-12-19] VITALS: Ht 177.8 cm; Wt 104.5 kg
[2017-12-19 20:55] VITALS: BP 113/77; PULSE 103; RESP 20; TEMP 98.3; O2SAT 99
[2017-12-19 21:00] VITALS: BP 128/90; PULSE 95; RESP 16; TEMP 98.4; O2SAT 100
--- NOTE | 2017-12-19 21:04 | PD ---
HPI Chief Complaint: Syncope/Near-Syncope Time Seen by Provider: 20:51 Travel History International Travel<30 days: No Contact w/Intl Traveler<30days: No Traveled to known affect area: No History of Present Illness HPI 42-year-old male came to the emergency room with history of vomiting that started this morning. He says since then he has vomited 10-12 times. No history of diarrhea. Patient was getting ready to come to the emergency room and then he had a syncopal episode at which point his called 911. Patient was slightly tachycardic upon arrival which has subsided since then. He complains of vague abdominal pain in the bilateral lower abdominal area. He thinks it could be from vomiting so many times. Patient thinks he has the flu. He is afebrile in the emergency room. Patient has history of diabetes and hypertension. [facility] Past Medical History Narrative Medical List of his past medical, surgical, social and family history as reviewed from the nursing note. Diabetes: Yes Patient Takes Glucophage: No Diminished Hearing: No Hypertension: Yes Kidney Stones: Yes Immunizations Current: Yes Tetanus Vaccination: < 5 Years Influenza Vaccination: No Past Surgical History Abdominal Surgery: Yes (Inguinal hernia) Social History Alcohol Use: No Tobacco Use: No Substance Use: No Allergies-Medications (Allergen,Severity, Reaction): Coded Allergies: No Known Allergies (Unverified , 08/09/17) Comments No known drug allergies. Reported Meds & Prescriptions Reported Meds & Active Scripts Active Protonix (Pantoprazole Sodium) 40 Mg Tab 40 Mg PO DAILY Basaglar Kwikpen (Insulin Glargine) 100 Unit/Ml Pen 25 Units SQ DIRECTED Novolog Inj (Insulin Aspart) 1,000 Unit/10 Ml Vial 0 SQ DIRECTED Sliding Scale as directed. Lexapro (Escitalopram Oxalate) 10 Mg Tab 10 Mg PO DAILY Lisinopril 20 Mg Tab 20 Mg PO DAILY Narrative Medication List of his home medications reviewed from the nursing note. Review of Systems Except as stated in HPI: all other systems reviewed are Neg Gastrointestinal: Positive: Nausea, Vomiting, Abdominal Pain Physical Exam Narrative GENERAL: Awake, alert, anxious, moderate distress SKIN: Focused skin assessment warm/dry. HEAD: Atraumatic. Normocephalic. EYES: Pupils equal and round. No scleral icterus. No injection or drainage. ENT: No nasal bleeding or discharge. Mucous membranes pink and moist. NECK: Trachea midline. No JVD. CARDIOVASCULAR: Regular rate and rhythm. No murmur appreciated. RESPIRATORY: No accessory muscle use. Clear to auscultation. Breath sounds equal bilaterally. GASTROINTESTINAL: Abdomen soft, non-tender, nondistended. Hepatic and splenic margins not palpable. MUSCULOSKELETAL: No obvious deformities. No clubbing. No cyanosis. No edema. NEUROLOGICAL: Awake and alert. No obvious cranial nerve deficits. Motor grossly within normal limits. Normal speech. PSYCHIATRIC: Appropriate mood and affect; insight and judgment normal. Data Data Last Documented VS Vital Signs Date Time Temp Pulse Resp B/P (MAP) Pulse Ox O2 Delivery O2 Flow Rate FiO2 12/19/17 23:46 98.0 95 18 125/60 (81) 98 12/19/17 21:00 Room Air Orders Orders Complete Blood Count With Diff (12/19/17 21:08) Comprehensive Metabolic Panel (12/19/17 21:08) Lipase (12/19/17 21:08) Iv Access Insert/Monitor (12/19/17 21:08) Ecg Monitoring (12/19/17 21:08) Oximetry (12/19/17 21:08) Ondansetron Inj (Zofran Inj) (12/19/17 21:15) Sodium Chlor 0.9% 1000 Ml Inj (Ns 1000 M (12/19/17 21:08) Sodium Chloride 0.9% Flush (Ns Flush) (12/19/17 21:15) Ct Abd/Pel W/O Iv Contrast (12/19/17 ) Influenzae A/B Antigen (12/19/17 21:12) Ed Discharge Order (12/19/17 23:21) Labs Laboratory Tests Test 12/19/17 21:15 12/19/17 22:20 White Blood Count 13.8 TH/MM3 Red Blood Count 6.07 MIL/MM3 Hemoglobin 16.4 GM/DL Hematocrit 47.1 % Mean Corpuscular Volume 77.7 FL Mean Corpuscular Hemoglobin 27.0 PG Mean Corpuscular Hemoglobin Concent 34.8 % Red Cell Distribution Width 14.1 % Platelet Count 227 TH/MM3 Mean Platelet Volume 8.7 FL Neutrophils (%) (Auto) 90.1 % Lymphocytes (%) (Auto) 3.2 % Monocytes (%) (Auto) 5.6 % Eosinophils (%) (Auto) 0.8 % Basophils (%) (Auto) 0.3 % Neutrophils # (Auto) 12.4 TH/MM3 Lymphocytes # (Auto) 0.4 TH/MM3 Monocytes # (Auto) 0.8 TH/MM3 Eosinophils # (Auto) 0.1 TH/MM3 Basophils # (Auto) 0.0 TH/MM3 CBC Comment DIFF FINAL Differential Comment Blood Urea Nitrogen 16 MG/DL Creatinine 1.11 MG/DL Random Glucose 300 MG/DL Total Protein 3.5 GM/DL Albumin 3.6 GM/DL Calcium Level 7.9 MG/DL Alkaline Phosphatase 100 U/L Aspartate Amino Transf (AST/SGOT) 18 U/L Alanine Aminotransferase (ALT/SGPT) 48 U/L Total Bilirubin 0.7 MG/DL Sodium Level 137 MEQ/L Potassium Level 3.6 MEQ/L Chloride Level 101 MEQ/L Carbon Dioxide Level 28.8 MEQ/L Anion Gap 7 MEQ/L Estimat Glomerular Filtration Rate 73 ML/MIN Lipase 86 U/L [facility] Medical Decision Making Medical Screen Exam Complete: Yes Emergency Medical Condition: Yes Medical Record Reviewed: Yes Differential Diagnosis Small bowel obstruction, acute gastroenteritis, viral illness, dehydration Narrative Course 10:12 PM blood test result shows hyperacute blood count with left shift which could be from excessive retching and vomiting. CT scan was done and resulted which is negative for any acute issues. Awaiting for the chemistry to be done and resulted. Given 1 L of IV fluid bolus and IV Zofran. Patient has not vomited once since he's been here. Procedures EKG Prior to Arrival: No Diagnosis Primary Impression: Acute gastritis Qualified Codes: K29.00 - Acute gastritis without bleeding Additional Impressions: Hyperglycemia Vomiting Qualified Codes: R11.2 - Nausea with vomiting, unspecified Syncope Qualified Codes: R55 - Syncope and collapse Referrals: Primary Care Physician Additional Instructions: Take your medications including insulin as per your prescriptions. Take the medication as per the prescription direction. Return to the ER if condition worsens or any other new concerns. Med/Other Pt SpecificInfo: Prescription(s) given Scripts Pantoprazole (Protonix) 40 Mg Tab 40 MG PO DAILY for Reflux, #30 TAB 0 Refills Prov: Flora Acevedo MD 12/19/17 Disposition: 01 DISCHARGE HOME Condition: Stable Flora Acevedo MD Dec 19, 2017 21:04
[2017-12-19] MEDS ORDERED: SODIUM CHLOR 0.9% 1000 ML INJ 1,000 ML IV SCH (21:08)
[2017-12-19] MEDS ORDERED: SODIUM CHLORIDE 0.9% FLUSH 10 ML FLUSH IV FLUSH PRN (21:15)
[2017-12-19] MEDS ORDERED: ONDANSETRON HCL 4 MG/2 ML VIAL IVP ONE (21:15)
[2017-12-19 21:20] VITALS: RESP 20
--- NOTE | 2017-12-19 21:38 | RADRPT ---
EXAM DATE/TIME: 12/19/2017 21:24 [facility] COMPARISON: CT ABDOMEN & PELVIS W/O CONTRAST, August 09, 2017, 14:25. INDICATIONS : Patient complains of nausea and vomiting. ORAL CONTRAST: No oral contrast ingested. RADIATION DOSE: 16.54 CTDIvol (mGy) MEDICAL HISTORY : Hypertension. Renal calculi. Hernia, inguinal. SURGICAL HISTORY : None. ENCOUNTER: Initial ACUITY: 1 day PAIN SCALE: 2/10 LOCATION: abdomen TECHNIQUE: Volumetric scanning of the abdomen and pelvis was performed. Using automated exposure control and ad justment of the mA and/or kV according to patient size, radiation dose was kept as low as reasonably achievable to obtain optimal diagnostic quality images. DICOM format image data is available electro nically for review and comparison. FINDINGS: LOWER LUNGS: The visualized lower lungs are clear. LIVER: Homogeneous slightly fatty density without lesion. 22 cm craniocaudal. There is no dilation of the b iliary tree. No calcified gallstones. SPLEEN: 15.5 cm craniocaudal. PANCREAS: Within normal limits. KIDNEYS: Multiple sub-3 mm stones scattered throughout both kidneys. Probable calcification of the medullary p yramids. No ureteral calculus or hydronephrosis/hydroureter. ADRENAL GLANDS: Within normal limits. VASCULAR: There is no aortic aneurysm. BOWEL/MESENTERY: The stomach, small bowel, and colon demonstrate no acute abnormality. There is no free intraperitone al air or fluid. Normal appendix ABDOMINAL WALL: Within normal limits. RETROPERITONEUM: There is no lymphadenopathy. BLADDER: No wall thickening or mass. REPRODUCTIVE: Within normal limits. INGUINAL: Small bilateral fat-containing inguinal hernias are again noted. MUSCULOSKELETAL: Within normal limits for patient age. CONCLUSION: 1. No obstruction or acute inflammatory changes. 2. 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 3. Liver is mildly enlarged and mild fatty infiltrated. 4. Mild splenomegaly again noted. Atul Mayo MD on December 19, 2017 at 21:33 Board Certified Radiologist. This report was verified electronically.
[2017-12-19 21:52] LABS: AUTOMATED NEUTROPHIL # 12.4 TH/MM3 (1.8-7.7); BASOPHIL % 0.3 % (0.0-2.0); EOSINOPHIL # 0.1 TH/MM3 (0-0.4); EOSINOPHIL % 0.8 % (0.0-4.0); HEMATOCRIT 47.1 % (39.0-51.0); HEMOGLOBIN 16.4 GM/DL (13.0-17.0); LYMPH % 3.2 % (9.0-44.0); LYMPHOCYTE # 0.4 TH/MM3 (1.0-4.8); MEAN CELL VOLUME 77.7 FL (80.0-100.0); MEAN CORPUSCULAR HGB CONC 34.8 % (32.0-36.0); MEAN PLATELET VOLUME 8.7 FL (7.0-11.0); MONO % 5.6 % (0.0-8.0); MONOCYTE # 0.8 TH/MM3 (0-0.9); NEUT % 90.1 % (16.0-70.0); PLATELET COUNT 227 TH/MM3 (150-450); RED BLOOD COUNT 6.07 MIL/MM3 (4.50-5.90); RED CELL DISTRIBUTION WIDTH 14.1 % (11.6-17.2); WHITE BLOOD COUNT 13.8 TH/MM3 (4.0-11.0)
[2017-12-19 22:53] LABS: GLOMERULAR FILTRATION RATE 73 ML/MIN (>89)
[2017-12-19 23:09] LABS: ALBUMIN 3.6 GM/DL (3.4-5.0); ALKALINE PHOSPHATASE 100 U/L (45-117); ALT (GPT) 48 U/L (12-78); AST (GOT) 18 U/L (15-37); BICARBONATE 28.8 MEQ/L (21.0-32.0); BLOOD UREA NITROGEN 16 MG/DL (7-18); CALCIUM 7.9 MG/DL (8.5-10.1); CHLORIDE 101 MEQ/L (98-107); CREATININE 1.11 MG/DL (0.60-1.30); GLUCOSE,RANDOM 300 MG/DL (74-106); SODIUM (NA) 137 MEQ/L (136-145); TOTAL BILIRUBIN ADULT 0.7 MG/DL (0.2-1.0)
[2017-12-19 23:14] LABS: TOTAL PROTEIN 3.5 GM/DL (6.4-8.2)
[2017-12-19] MEDS ORDERED: PROT40TA PO (23:25)
[2017-12-19 23:46] VITALS: BP 125/60; TEMP 98
== END 2017-12-19 23:48 | disposition home or self-care (01) ==
LOC: NEPD 20:00
DX: K29.00 Acute gastritis without bleeding (principal); E11.65 Type 2 diabetes mellitus with hyperglycemia; R55 Syncope and collapse; I10 Essential (primary) hypertension; Z79.4 Long term (current) use of insulin
CPT/HCPCS: 74176; 80053; 83690; 85025; 87804; 96361; 96374; 99284; J2405; J7030